=== PATIENT | male | born 1985 | race African-American/Black ===

== ENCOUNTER 2021-11-23 11:12 | Emergency (ER) | payer SELFPAY ==
[2021-11-23 11:24] VITALS: BP 132/78; PULSE 88; O2SAT 99
--- NOTE | 2021-11-23 11:27 | ED.SKABFB ---
HPI - Skin/Abscess/Foreign Bdy General Chief complaint: Skin/Abscess/Foreign Body Stated complaint: RASH ON HANDS AND FEET Time Seen by Provider: 11/23/21 11:27 Source: patient and EMS Mode of arrival: EMS Limitations: no limitations History of Present Illness HPI narrative: 36 yo male presents to the ER for a rash on his hands and feet that he noticed when he woke up this morning. He reports they are burning and painful. He has 1 lesion on the inside of his upper lip but no other oral lesions. He denies any fever or chills. He has young kids at home were sick with cold. He has not noticed rash on their hands or feet. He is wondering about a possible allergic reaction to the powdered gloves he uses at work. He works in food industry. He denies any rashes or lesions anywhere else. No new soaps or lotions. complaint: rash Onset (ago): hour(s) Tetanus up to date: no Location: L hand, R hand, L foot and R foot Severity: moderate Severity scale (1-10): 7 Quality: burning Pain Consistency: constant Relieving factors: none Exacerbating factors: palpation Context: none Associated symptoms: denies other symptoms Treatments prior to arrival: none Related Data Previous Rx's Medication Instructions Recorded ibuprofen 600 mg tablet 600 mg PO Q8H PRN pain #14 tabs 11/23/21 Allergies Allergy/AdvReac Type Severity Reaction Status Date / Time Unable to Assess Allergy Unverified 11/23/21 11:42 Review of Systems Review of Systems: Constitutional: No Fever, No Chills Cardiovascular: No Chest Pain, No SOB Respiratory: No Cough, No Sputum Gastrointestinal: No Nausea, No Vomiting, No Diarrhea, No abdominal Pain Genitourinary: No Dysuria, No Urinary Frequency, No Hematuria, No genital lesions Musculoskeletal: No joint pain, No Myalgias Skin: No Skin Lesions, + rash Neuro: No Weakness, No Numbness, No Dizziness, No Headache Psych: +Anxiety/Panic, No Depression Heme/Lymph: No Bruising, No Lymphadenopathy PMFSH Social History Social History Advance Directives: No Advance Directives Information Provided: No Physical Exam Vital Signs: Vital Signs: Last Vital Signs Temp 98.5 F 11/23/21 11:36 Pulse 68 11/23/21 11:36 Resp 18 11/23/21 11:36 BP 132/87 11/23/21 11:36 Pulse Ox 100 11/23/21 11:36 O2 Del Method 11/23/21 11:36 BMI result Body Mass Index 21.2 Appearance: Alert. Oriented X3. No acute distress. HEENT: normal external inspection there is 1 painful ulceration under the upper lip. No other oral lesions. CVS: Normal heart rate and rhythm. Pulses normal. Respiratory: No respiratory distress. Lungs are clear throughout Skin: Skin warm and dry. Normal skin color. Normal skin turgor. Extremities: The palms of the hands and the soles of the feet have hyperpigmented, tender, circular lesions. Neuro: Oriented X 3. No motor deficit. No sensory deficit. Course Course Course Narrative: 36 yo male presents to the ER with a painful rash on his hands and feet that he noticed when he woke up today. His exam and clinical presentation are consistent with [id number] disease. He has children at home or also L and most likely have the same virus. He was counseled on this. He was counseled on management and supportive care. Stable for discharge home. Work note provided per request. Discharge Plan Discharge Clinical Impression: Hand, foot and mouth disease Patient Disposition: Home, Self-Care Instructions: Hand, Foot, and Mouth Disease (ED) Additional Instructions: Your examination is consistent with [id number] disease, this is caused by a virus and is self limited. This will resolve on its own. Treatment is supportive care Take Motrin and Tylenol for pain. Rest and drink plenty of fluids. If you develop new or worsening symptoms call 911 or come back to the ER for further evaluation. Prescriptions: New ibuprofen 600 mg tablet 600 mg PO Q8H PRN (Reason: pain) Qty: 14 0RF Stand Alone Forms: Work/School Release
[2021-11-23 11:36] VITALS: BP 132/87; PULSE 68; RESP 18; TEMP 36.9; O2SAT 100; BMI 21.2
== END 2021-11-23 12:13 | disposition home or self-care (01) ==
LOC: HO.ED 12:04
PROVIDERS: Emergency Provider Emergency Medicine
DX: B08.4 Enteroviral vesicular stomatitis with exanthem (principal); R21 Rash and other nonspecific skin eruption
CPT/HCPCS: 99283